=== PATIENT | male | born 1985 | race Caucasian/White ===

== ENCOUNTER 2016-11-14 21:20 | Emergency (ER) | payer MEDICARE, OTHER ==
[~2016-11-14] VITALS: Ht 177.8 cm; Wt 120.0 kg
[~2016-11-14 21:20] MED LIST: DEXT15TA PO; IBUP800T23 PO; LISI-360 PO
[2016-11-14 21:21] VITALS: BP 138/79; PULSE 74; RESP 16; TEMP 98; O2SAT 100
[2016-11-14] MEDS ORDERED: TETRACAINE 0.5% OPTH SOLN 4 ML BTL RIGHT EYE ONE (22:15)
[2016-11-14] MEDS ORDERED: FLUORESCEIN SOD 1 MG STRIP RIGHT EYE ONE (22:15)
[2016-11-14] MEDS ORDERED: ERYTOIN10 RIGHT EYE (23:13)
[2016-11-14] MEDS ORDERED: NORC5TAB PO (23:13)
[2016-11-14] MEDS ORDERED: KETO1SOL3 RIGHT EYE (23:13)
--- NOTE | 2016-11-14 23:13 | PD ---
HPI . Right eye injury Chief Complaint: Eye Problems/Injury Time Seen by Provider: 22:13 Travel History International Travel<30 days: No Contact w/Intl Traveler<30days: No Traveled to known affect area: No History of Present Illness HPI Patient presents with chief complaint of a right eye injury. It occurred about 5 hours prior to presentation. He states he was working in the yard and was inadvertently struck in the right eye by a tree branch. He denies foreign body sensation. He states his vision feels blurry. He does have some photophobia. He also has some drainage. PFSH Past Medical History ADHD: Yes Depression: Yes Diminished Hearing: No GERD: Yes Past Surgical History Other Surgery: Yes (pilonodal cyst removed) Social History Alcohol Use: Yes (OCC) Tobacco Use: No Substance Use: No Allergies-Medications (Allergen,Severity, Reaction): Coded Allergies: Penicillin (Verified Allergy, Severe, ITCHING AND Nausea/Vomiting, 11/14/16 ) Reported Meds & Prescriptions Reported Meds & Active Scripts Active No Active Prescriptions or Reported Medications Review of Systems Except as stated in HPI: all other systems reviewed are Neg Eyes: Positive: Blurred Vision, Photophobia, Drainage, Redness, Pain Physical Exam Narrative GENERAL: Awake and alert and in no acute distress. SKIN: Warm and dry. HEAD: Atraumatic. Normocephalic. EYES: Pupils equal and round. Extraocular movements are intact. He has some purulent drainage from the right eye. The conjunctiva is injected. Lids are everted and no foreign body is seen. Force and staining shows a large area of uptake between the 12:00 and 2:00 positions. NECK: Trachea midline. CARDIOVASCULAR: Regular rate and rhythm. RESPIRATORY: No accessory muscle use. MUSCULOSKELETAL: No obvious deformities. No edema. NEUROLOGICAL: Awake and alert. No obvious cranial nerve deficits. Motor grossly within normal limits. Normal speech. PSYCHIATRIC: Appropriate mood and affect; insight and judgment normal. Data Data Last Documented VS Vital Signs Date Time Temp Pulse Resp B/P Pulse Ox O2 Delivery O2 Flow Rate FiO2 11/14/16 22:11 16 11/14/16 21:21 98.0 74 138/79 100 Room Air Orders Fluorescein Strip (Dagxk-B-Upucba A.T.) (11/14/16 22:15) Tetracaine 0.5% Opth Soln (Tetracaine 0. (11/14/16 22:15) [facility] Medical Decision Making Medical Screen Exam Complete: Yes Emergency Medical Condition: Yes Differential Diagnosis Differential diagnosis of eye pain includes but is not limited to conjunctivitis , chemical irritation, corneal abrasion, acute angle-closure glaucoma. Narrative Course Patient presents complaining with right eye pain after being struck in the eye by a tree branch. His exam shows a corneal abrasion. He will be treated with erythromycin ophthalmic ointment, Acular and Lortab. I have told him to expect to improve within the next 24-48 hours. Diagnosis Primary Impression: Corneal abrasion, right Qualified Code: S05.01XA - Corneal abrasion, right, initial encounter Patient Instructions: Corneal Abrasion (DC), General Instructions Med/Other Pt SpecificInfo: Prescription(s) given Scripts Hydrocodone-Acetaminophen ([place])5-325 mg Tab1 Tab PO Q4H PRN (PAIN) #6 TAB Ref 0 Prov:Stephania Smith MD 11/14/16 Ketorolac Opth Drops (Acular Opth Drops)0.5% Drops1 Drop RIGHT EYE QID #5 ML Ref 0 Prov:Stephania Smith MD 11/14/16 Erythromycin Opth Oint 5 Mg/Gm Oint1 Applic RIGHT EYE QID 5 Days Ref 0 Prov:Stephania Smith MD 11/14/16 Disposition: 01 DISCHARGE HOME Condition: Stable Stephania Smith MD Nov 14, 2016 23:13
[2016-11-14] MEDS ORDERED: ACETAMINOPHEN/HYDROcodone 325 MG/5 MG TAB PO ONE (23:15)
[2016-11-15] MEDS ORDERED: ERYTHROMYCIN 0.5% OPTH OINT 3.5 GM TUBO RIGHT EYE SCH
[2016-11-15] MEDS ORDERED: KETOROLAC TROMETHAMINE 0.5% OPHT SOLN 5 ML BTL RIGHT EYE SCH (09:00)
== END 2016-11-14 23:48 | disposition home or self-care (01) ==
LOC: NEPD 21:20
DX: S05.01XA Injury of conjunctiva and corneal abrasion without foreign body, right eye, initial encounter (principal); H53.149 Visual discomfort, unspecified; F90.9 Attention-deficit hyperactivity disorder, unspecified type; F32.9 Major depressive disorder, single episode, unspecified; K21.9 Gastro-esophageal reflux disease without esophagitis; W22.8XXA Striking against or struck by other objects, initial encounter; Y92.096 Garden or yard of other non-institutional residence as the place of occurrence of the external cause; Z88.0 Allergy status to penicillin
CPT/HCPCS: 99284